=== PATIENT | male | born 1960 | race Caucasian/White ===

== ENCOUNTER 2017-03-10 09:26 | Day surgery (SDC) | payer OTHER ==
[~2017-03-10] VITALS: Ht 175.3 cm; Wt 81.7 kg
[~2017-03-10 09:26] MED LIST: ASPI-973 PO; CALC-777 PO; OXY5 PO; Sodium Chloride LOK Flush 10 mL Syringe IV PRN; VIS25 PO; fentaNYL-PF 50 mCg/mL 2 mL Inj IVPUSH PRN
[2017-03-10 09:47] VITALS: BP 134/86; PULSE 58; RESP 16; O2SAT 95
[2017-03-10] MEDS: 0.9% Sodium Chloride 1,000 ML IV SCH ×2 (09:49→10:36)
--- NOTE | 2017-03-10 10:42 | PCM.ENDCOL ---
Colonoscopy Date of Service: Mar 10, 2017 Physician Mateo Carr MD Pre Procedure Diagnosis: Screening Post Procedure Dx & Findings: Polyp hemorrhoids Procedure Colonoscopy PROCEDURE IN DETAIL: Prep adequate Withdrawal time 13 minutes After unremarkable rectal examination the Olympus video colonoscope was inserted patient's anal canal and was advanced to cecum. Landmarks were identified including the ileocecal valve and appendiceal orifice. Scope was withdrawn systematically. Visualized colonic mucosa showed healthy shiny mucosa with normal healthy-appearing vasculature. In the ascending colon there was a 3 mm polyp which was removed completely using cold snare. In the descending colon there was a 1 mm polyp was removed completely using cold forceps. In the rectum retroflexion was done which showed hemorrhoids. Anal canal was inspected carefully on the way out and hemorrhoids noted. Impression Polyps 2 status post complete removal Hemorrhoids Recommendation Repeat colonoscopy 5 years Presedation Assessment Risks and Benefits Informed consent was obtained from the patient after all risks and benefits including but not limited to drug reaction, infection, pain, bleeding, perforation, as well as alternatives were discussed. Patient monitoring Continuous pulse oximetry, cardiac monitoring, blood pressure monitoring, IV access, and oxygen at 2L per nasal cannula. Periprocedural Fentanyl: Fentanyl 75mcg Incrementally Midazolam: Midazolam 3mg Incrementally Complications There were no periprocedural complications identified. Post Procedure Plan Post Procedure Recommendations 1. Restrict activities today. 2. Resume normal activities in the morning. 3. Resume medications. 4. Patient informed of normal post procedure side effects as bloating, drowsiness, blood streaking in the stool. 5. average risk CRCS. If colon polyps come back as: -Hyperplastic- can repeat colonoscopy in 10 years -Tubular adenoma- repeat colonoscopy in 5 years -Tubulovillous/villous adenoma- repeat colonoscopy in 3 years -If any dysplasia- return to clinic as soon as possible 6. Please don't hesitate to call me with any questions. Mateo Carr MD Mar 10, 2017 10:42
[2017-03-10 10:48] VITALS: BP 131/79; PULSE 50; RESP 16; O2SAT 98
[2017-03-10 11:05] VITALS: BP 124/78; PULSE 60; RESP 16; O2SAT 99
[2017-03-10 11:21] VITALS: BP 118/81; PULSE 46; O2SAT 98
--- NOTE | 2017-03-13 09:33 | PATH ---
SURGICAL PATHOLOGY Attending Physician:Mateo Carr M.D. CASE STATUS: Signed Out PATIENT NAME: SUSI DEXTER PID: [id number] : 1960 DATE COLLECTED:03/10/2017 16:04 SPECIMEN: 1: Colon, Polyp 2: Colon, Polyp CLINICAL HISTORY: SCREENING COLON POLYPS 1. ASCENDING COLON POLYP 2. DESCENDING COLON POLYP FINAL DIAGNOSIS: 1.ASCENDING COLON POLYP: SESSILE SERRATED ADENOMA. 2.DESCENDING COLON POLYP: BENIGN COLONIC MUCOSA WITH INTRAMUCOSAL LYMPHOID AGGREGATE. Negative for dysplasia and malignancy. Multiple microscopic levels examined. ICD10 D12.2 K63.5 GROSS DESCRIPTION: Received two formalin-filled containers, both labeled with the patient's name. 1. In a container labeled "ascending colon polyp", specimen consists of a 0.5 x 0.2 x 0.2 cm portion of tissue which is entirely submitted in cassette 1A. 2. The specimen is labeled "descending colon polyp", the specimen consists of a 0.2 x 0.2 x 0.2 cm portion of tissue, which is entirely submitted in cassette 2A. ([facility]:[id number]) MICRO DESCRIPTION: See diagnosis. ICD-9 CODES: CPT CODES: 1: 30828 2: 34047 Electronically Signed Out Elba Carlson MD [facility], [place] [address] Technical component performed at [facility], [facility] [address], [place], [address]
== END 2017-03-10 23:59 | disposition home or self-care (01) ==
LOC: END 09:26
PROVIDERS: ATTEND Internal Medicine
DX: Z12.11 Encounter for screening for malignant neoplasm of colon (principal); D12.2 Benign neoplasm of ascending colon; K63.5 Polyp of colon; K64.9 Unspecified hemorrhoids; E78.5 Hyperlipidemia, unspecified; K21.9 Gastro-esophageal reflux disease without esophagitis; M54.12 Radiculopathy, cervical region; Z87.891 Personal history of nicotine dependence
CPT/HCPCS: 45380; 45385; 99153; G0500; J2250; J3010; J7030